=== PATIENT | male | born 1945 | race Caucasian/White ===

== ENCOUNTER 2025-03-25 06:52 | Emergency (ER) | payer OTHER ==
[2025-03-25] MEDS: fentaNYL 100 MCG/2 ML SDV IVPUSH ONE ×2 (07:13→08:52)
[2025-03-25] MEDS ORDERED: Acetaminophen/oxyCODONE 325-5 MG Tab ONE (09:00)
== END 2025-03-25 09:20 | disposition home or self-care (01) ==
LOC: LB.ED 06:52
DX: S42.211A Unspecified displaced fracture of surgical neck of right humerus, initial encounter for closed fracture (principal); I10 Essential (primary) hypertension; E78.00 Pure hypercholesterolemia, unspecified; Z88.0 Allergy status to penicillin; Z95.5 Presence of coronary angioplasty implant and graft; Z88.1 Allergy status to other antibiotic agents; W06.XXXA Fall from bed, initial encounter
CPT/HCPCS: 73030-RT; 73060-RT; 96374; 96376; 99283-25; A0425; A0429; A9270-GY; J3010